=== PATIENT | male | born 1955 | race Caucasian/White ===

== ENCOUNTER 2019-04-11 18:59 | Emergency (ER) | payer BC, OTHER ==
[~2019-04-11] VITALS: Ht 162.6 cm; Wt 70.3 kg
--- NOTE | 2019-04-11 19:10 | NUR ---
Patient to ER bed 06 to gown for evaluation. Side rails up.
[2019-04-11 19:11] VITALS: BP_SYST 165
--- NOTE | 2019-04-11 19:15 | NUR ---
Patient brought in complaining of generalized weakness and clamminess starting today. Patient also reports being treated with antibiotics for sinus infection but has not been drinking fluids. No other complaints/injuries per patient or as noted. Will continue to monitor.
--- NOTE | 2019-04-11 19:21 | NUR ---
GER Hahn at bedside examining patient.
[2019-04-11] MEDS ORDERED: NACL 0.9% 1,000 ML IV ONE (19:30)
[2019-04-11 19:46] LABS: BASOPHILS % (AUTO) 0.5 % (0.0-2.0); EOSINOPHILS # (AUTO) 0.1 K/uL (0.0-0.4); EOSINOPHILS % (AUTO) 1.2 % (0.0-4.0); HEMATOCRIT 37.2 % (36-54); HEMOGLOBIN 12.9 g/dL (14.0-18.0); LYMPHOCYTES # (AUTO) 1.4 K/uL (1.0-5.5); LYMPHOCYTES % (AUTO) 20.5 % (20.5-51.5); MEAN CORPUSCULAR HEMOGLOBIN 34 pg (27-31); MEAN CORPUSCULAR HGB CONC 35 % (32-36); MEAN CORPUSCULAR VOLUME 97 fL (79.0-98.0); MONOCYTES # (AUTO) 0.6 K/uL (0.0-1.0); MONOCYTES % (AUTO) 8.7 % (1.7-9.3); NEUTROPHILS # (AUTO) 4.7 K/uL (1.8-7.7); NEUTROPHILS % (AUTO) 69.1 % (40.0-70.0); PLATELET COUNT (AUTO) 154 K/uL (130-430); RED BLOOD CELL COUNT(AUTO) 3.83 MIL/uL (4.2-6.2); RED CELL DISTRIBUTION WIDTH 12.8 % (9.0-15.0); WHITE BLOOD COUNT (AUTO) 6.9 K/uL (4.8-10.8)
[2019-04-11 20:00] LABS: CALCIUM 9.2 mg/dL (8.4-11.0); CREATININE 0.91 mg/dL (0.55-1.30); POTASSIUM 3.7 mmol/L (3.5-5.1)
[2019-04-11 20:04] LABS: ALBUMIN 3.8 g/dL (3.4-4.8); TOTAL BILIRUBIN 0.7 mg/dL (0.0-1.0)
[2019-04-11] MEDS ORDERED: AMOXICILLIN 500 MG CAPSULE PO ONE (21:00)
[2019-04-11 21:05] VITALS: BP_SYST 148
--- NOTE | 2019-04-11 21:05 | NUR ---
Patient given written and verbal discharge instructions and verbalizes understanding. ER MD discussed with patient the results and treatment provided. Patient in stable condition. ID arm band removed. IV catheter removed intact and dressing applied, no active bleeding. No Rx given. Patient educated on pain management and to follow up with PMD in 2- 3 days. Pain Scale 0/10 Opportunity for questions provided and answered. Medication side effect fact sheet provided.
== END 2019-04-11 21:05 | disposition home or self-care (01) ==
LOC: EDBD 18:59 → SED 18:59
DX: E86.0 Dehydration (principal); E87.6 Hypokalemia; K08.89 Other specified disorders of teeth and supporting structures; R42 Dizziness and giddiness; E78.00 Pure hypercholesterolemia, unspecified; R03.0 Elevated blood-pressure reading, without diagnosis of hypertension; F17.210 Nicotine dependence, cigarettes, uncomplicated; Z71.6 Tobacco abuse counseling
CPT/HCPCS: 36415; 80053; 85025; 96360; 99283; J7030

== ENCOUNTER 2020-05-06 08:43 | Inpatient (IN) | payer OTHER, SELFPAY ==
[~2020-05-06] VITALS: Ht 170.2 cm; Wt 74.8 kg
[2020-05-06 08:43] VITALS: BP_SYST 147
[2020-05-06] MEDS ORDERED: ONDANSETRON HCL 4 MG/2 ML VIAL IVP ONE (10:15)
[2020-05-06] MEDS ORDERED: NACL 0.9% 1,000 ML IV ONE (10:15)
[2020-05-06 10:36] LABS: BASOPHILS % (AUTO) 0.5 % (0.0-2.0); EOSINOPHILS # (AUTO) 0.1 K/uL (0.0-0.4); HEMATOCRIT 32.7 % (36-54); HEMOGLOBIN 11.8 g/dL (14.0-18.0); LYMPHOCYTES # (AUTO) 0.7 K/uL (1.0-5.5); LYMPHOCYTES % (AUTO) 15.4 % (20.5-51.5); MEAN CORPUSCULAR HEMOGLOBIN 38 pg (27-31); MEAN CORPUSCULAR HGB CONC 36 % (32-36); MEAN CORPUSCULAR VOLUME 106 fL (79.0-98.0); MONOCYTES # (AUTO) 0.5 K/uL (0.0-1.0); NEUTROPHILS # (AUTO) 3.5 K/uL (1.8-7.7); NEUTROPHILS % (AUTO) 72.1 % (40.0-70.0); PLATELET COUNT (AUTO) 114 K/uL (130-430); RED CELL DISTRIBUTION WIDTH 13.4 % (9.0-15.0); WHITE BLOOD COUNT (AUTO) 4.8 K/uL (4.8-10.8)
[2020-05-06 10:43] LABS: CREATININE 0.83 mg/dL (0.55-1.30); POTASSIUM 3.4 mmol/L (3.5-5.1)
[2020-05-06 10:49] LABS: ALBUMIN 3.3 g/dL (3.4-4.8); TOTAL BILIRUBIN 1.4 mg/dL (0.0-1.0)
[2020-05-06] MEDS ORDERED: SODIUM CHLORIDE 3% *HI-ALERT* 500 ML IV ONE ×3 (11:00→23:42)
[2020-05-06] MEDS ORDERED: SODIUM CHLORIDE 3% IV ONE (11:30)
[2020-05-06] MEDS ORDERED: [UNRECOGNIZED DRUG - OTHER] IV ONE (11:30)
[2020-05-06] MEDS ORDERED: ACETAMINOPHEN 500 MG TABLET PO ONE (15:30)
[2020-05-06] MEDS ORDERED: ACETAMINOPHEN 500 MG TABLET ONE ×2 (15:35→23:53)
[2020-05-06 15:47] LABS: BILIRUBIN,URINE NEGATIVE (NEGATIVE); BLOOD, URINE NEGATIVE (NEGATIVE); CLARITY/URINE CLEAR (CLEAR); COLOR,URINE YELLOW (YELLOW); GLUCOSE,URINE NEGATIVE (NEGATIVE); KETONES,URINE NEGATIVE (NEGATIVE); LEUKOCYTE ESTERASE ,URINE NEGATIVE (NEGATIVE); NITRITE, URINE NEGATIVE (NEGATIVE); PH,URINE 7.5 (5.0-8.0); PROTEIN URINE NEGATIVE (NEGATIVE); UROBILINOGEN,URINE 0.2 (0.2-1.0)
[2020-05-06 16:09] LABS: BARBITURATE, URINE NEGATIVE (NEG <=200); BENZODIAZEPINE, URINE NEGATIVE (NEG <=150); CANNABINOID, URINE NEGATIVE (NEG <=50); COCAINE, URINE NEGATIVE (NEG <=150); METHAMPHETAMINES SCREEN,URINE NEGATIVE (NEG <=500); OPIATE, URINE NEGATIVE (NEG <=100); PHENCYCLIDINE SCREEN,URINE NEGATIVE (NEG <=25); UR TRICYCLIC ANTIDEPRESSANTS NEGATIVE (NEG <=300); URINE AMPHETAMINE NEGATIVE (NEG <=500); URINE METHADONE NEGATIVE (NEG <=200); URINE OXYCODONE SCREEN NEGATIVE (NEG <=100); URINE PROPOXYPHENE SCREEN NEGATIVE (NEG <=300)
[2020-05-06 16:28] LABS: CALCIUM 7.2 mg/dL (8.4-11.0); CREATININE 0.65 mg/dL (0.55-1.30); POTASSIUM 3.1 mmol/L (3.5-5.1)
[2020-05-06] MEDS ORDERED: NACL 0.9% 1,000 ML IV SCH (19:30)
[2020-05-06] MEDS ORDERED: KCL 20 mEq in NS 1000 mL 1,000 ML IV SCH (19:45)
[2020-05-06 22:33] LABS: CREATININE 0.81 mg/dL (0.55-1.30); POTASSIUM 3.1 mmol/L (3.5-5.1)
[2020-05-06] MEDS ORDERED: KCL 20 mEq in 100 mL (PREMIX) 100 ML IV ONE ×2 (23:15→23:34)
[2020-05-07] VITALS (16 sets, daily range): BP systolic 104–148
[2020-05-07] MEDS ORDERED: LORazepam 2 MG/ML VIAL IVP ONE (00:30)
[2020-05-07] MEDS ORDERED: LORazepam 2 MG/ML VIAL ONE (01:12)
[2020-05-07 04:27] LABS: PLATELET COUNT (AUTO) 101 K/uL (130-430); WHITE BLOOD COUNT (AUTO) 4.7 K/uL (4.8-10.8)
[2020-05-07 04:35] LABS: BASOPHILS % (AUTO) 0.6 % (0.0-2.0); EOSINOPHILS # (AUTO) 0.1 K/uL (0.0-0.4); EOSINOPHILS % (AUTO) 3.1 % (0.0-4.0); HEMOGLOBIN 11.4 g/dL (14.0-18.0); LYMPHOCYTES # (AUTO) 1.2 K/uL (1.0-5.5); LYMPHOCYTES % (AUTO) 24.7 % (20.5-51.5); MEAN CORPUSCULAR HEMOGLOBIN 39 pg (27-31); MEAN CORPUSCULAR HGB CONC 36 % (32-36); MEAN CORPUSCULAR VOLUME 108 fL (79.0-98.0); MONOCYTES # (AUTO) 0.6 K/uL (0.0-1.0); MONOCYTES % (AUTO) 12.7 % (1.7-9.3); NEUTROPHILS # (AUTO) 2.8 K/uL (1.8-7.7); NEUTROPHILS % (AUTO) 58.9 % (40.0-70.0); RED BLOOD CELL COUNT(AUTO) 2.96 MIL/uL (4.2-6.2); RED CELL DISTRIBUTION WIDTH 13.5 % (9.0-15.0)
[2020-05-07 04:56] LABS: ALBUMIN 2.9 g/dL (3.4-4.8); CALCIUM 7.2 mg/dL (8.4-11.0); CREATININE 0.72 mg/dL (0.55-1.30); PHOSPHORUS 2.2 mg/dL (2.7-4.5); POTASSIUM 3.5 mmol/L (3.5-5.1); THYROID STIMULATING HORMONE 2.67 uIu/mL (0.36-3.74); TOTAL BILIRUBIN 1.3 mg/dL (0.0-1.0)
[2020-05-07] MEDS: ACETAMINOPHEN 500 MG TABLET PO PRN ×2 (12:42→17:35)
[2020-05-07] MEDS ORDERED: K PHOS 30 MM in NS 250 ML IV ONE (13:30)
[2020-05-07 15:50] LABS: CALCIUM 7.1 mg/dL (8.4-11.0); CREATININE 0.55 mg/dL (0.55-1.30); POTASSIUM 3.4 mmol/L (3.5-5.1)
[2020-05-07] MEDS ORDERED: cloNIDine HCL 0.1 MG TABLET PO PRN (17:45)
[2020-05-07] MEDS ORDERED: ALBUTEROL MDI INHALATION 8 GM INH INH PRN (19:00)
[2020-05-07] MEDS ORDERED: COMMUNICATION ORDER XX ONE (19:45)
[2020-05-07] MEDS: traMADol HCL HCL 50 MG TABLET (ULTRAM) PO PRN (21:30)
[2020-05-07 23:22] LABS: CALCIUM 7.1 mg/dL (8.4-11.0); CREATININE 0.6 mg/dL (0.55-1.30); POTASSIUM 3.7 mmol/L (3.5-5.1)
[2020-05-08] VITALS (24 sets, daily range): BP systolic 103–157
[2020-05-08] MEDS ORDERED: COMMUNICATION ORDER XX ONE (00:45)
[2020-05-08] MEDS ORDERED: SODIUM CHLORIDE 3% *HI-ALERT* 500 ML IV ONE ×3 (01:00→09:15)
[2020-05-08] MEDS: ACETAMINOPHEN 500 MG TABLET PO PRN ×3 (01:41→12:07)
[2020-05-08 06:25] LABS: CALCIUM 7.4 mg/dL (8.4-11.0); CREATININE 0.65 mg/dL (0.55-1.30); PHOSPHORUS 2.4 mg/dL (2.7-4.5); POTASSIUM 3.4 mmol/L (3.5-5.1)
[2020-05-08] MEDS ORDERED: K PHOS 30 MM in NS 250 ML IV ONE (09:15)
[2020-05-08] MEDS ORDERED: ALBUTEROL SULFATE 0.083% 2.5 MG/3 ML VIAL.NEB INH PRN (15:00)
[2020-05-08 16:59] LABS: CALCIUM 7.3 mg/dL (8.4-11.0); CREATININE 0.73 mg/dL (0.55-1.30); PHOSPHORUS 2.9 mg/dL (2.7-4.5); POTASSIUM 3.6 mmol/L (3.5-5.1)
[2020-05-08] MEDS: traMADol HCL HCL 50 MG TABLET (ULTRAM) PO PRN (20:47)
[2020-05-08 22:56] LABS: CALCIUM 7.6 mg/dL (8.4-11.0); CREATININE 0.86 mg/dL (0.55-1.30); POTASSIUM 3.5 mmol/L (3.5-5.1)
[2020-05-09] VITALS (14 sets, daily range): BP systolic 112–160
[2020-05-09] MEDS: NACL 0.9% 1,000 ML IV SCH ×2 (00:49→15:21)
[2020-05-09] MEDS: TEMAZEPAM 15 MG CAPSULE PO PRN ×2 (02:38→20:45)
[2020-05-09 07:03] LABS: CALCIUM 7.7 mg/dL (8.4-11.0); CREATININE 0.78 mg/dL (0.55-1.30); POTASSIUM 3.5 mmol/L (3.5-5.1)
[2020-05-09 09:18] LABS: BILIRUBIN,URINE NEGATIVE (NEGATIVE); BLOOD, URINE NEGATIVE (NEGATIVE); CLARITY/URINE CLEAR (CLEAR); COLOR,URINE YELLOW (YELLOW); GLUCOSE,URINE NEGATIVE (NEGATIVE); KETONES,URINE NEGATIVE (NEGATIVE); LEUKOCYTE ESTERASE ,URINE NEGATIVE (NEGATIVE); NITRITE, URINE NEGATIVE (NEGATIVE); PROTEIN URINE NEGATIVE (NEGATIVE); UROBILINOGEN,URINE 0.2 (0.2-1.0)
[2020-05-09] MEDS: ACETAMINOPHEN 500 MG TABLET PO PRN (10:16)
[2020-05-09] MEDS ORDERED: SODIUM CHLORIDE 500 MG TABLET PO ONE (15:00)
[2020-05-09 16:29] LABS: CALCIUM 8.6 mg/dL (8.4-11.0); CREATININE 0.64 mg/dL (0.55-1.30); POTASSIUM 3.7 mmol/L (3.5-5.1)
[2020-05-09] MEDS: SODIUM CHLORIDE 500 MG TABLET PO SCH (20:15)
[2020-05-10] VITALS: BP_SYST 146
[2020-05-10] MEDS: NACL 0.9% 1,000 ML IV SCH ×2 (06:12→18:12)
[2020-05-10 08:00] VITALS: BP_SYST 147
[2020-05-10 08:38] LABS: CREATININE 0.8 mg/dL (0.55-1.30); POTASSIUM 3.5 mmol/L (3.5-5.1)
[2020-05-10] MEDS: SODIUM CHLORIDE 500 MG TABLET PO SCH (08:52)
[2020-05-10 16:10] VITALS: BP_SYST 162
[2020-05-10 18:28] VITALS: BP_SYST 152
== END 2020-05-10 19:10 | disposition home or self-care (01) | DRG 391 ==
LOC: SED 08:43 → UNDOADMIN 11:00 → SNS 11:00 → SIC 11:00 → STU 05-07 08:42 → SIC 05-07 08:42 → STU 05-09 11:32
PROVIDERS: ADMIT Internal Medicine; ATTEND Internal Medicine
DX: K52.9 Noninfective gastroenteritis and colitis, unspecified (principal); E43 Unspecified severe protein-calorie malnutrition; E87.1 Hypo-osmolality and hyponatremia; E86.0 Dehydration; D69.6 Thrombocytopenia, unspecified; K29.70 Gastritis, unspecified, without bleeding; E78.5 Hyperlipidemia, unspecified; E86.1 Hypovolemia; Z68.25 Body mass index [BMI] 25.0-25.9, adult; Z03.818 Encounter for observation for suspected exposure to other biological agents ruled out
CPT/HCPCS: 36415; 70450-TC; 80048; 80053; 80061; 80307; 81003; 82088; 82150-TC; 82533; 83690-TC; 83735-TC; 83930-TC; 83935-TC; 84100-TC; 84295-TC; 84302-TC; 84443-TC; 84550-TC; 85025; 87081; 94760; 96361; 96374; 99291; G0378; J2060; J2405; J3480; J3490; J7030; J7050; U0003-CS